=== PATIENT | male | born 1955 | race African-American/Black ===

== ENCOUNTER 2019-03-09 12:30 | Emergency (ER) | payer BC, SELFPAY ==
[2019-03-09 12:32] VITALS: BP 160/114; PULSE 114; RESP 18; TEMP 37.1; O2SAT 100; BMI 26.6
--- NOTE | 2019-03-09 12:54 | ED.VIS.GEN ---
History of Present Illness Chief Complaint: Abd Pain Informant: Patient Onset: Yesterday Context: Gradual Onset Timing: Continuous Quality: pressure, pain, cramps Location: lower abd Current Severity: Moderate Maximum Severity: Moderate Worsened by: nothing Relieved by: nothing Associated Symptoms: cannot urinate or have BM Narrative: Patient has a history of BPH, and was taken off of Flomax which she was on for a long time, about 3 years ago. He has had more difficulty making a good stream of urine than usual lately, followed by the inability to get urine out starting yesterday. He still is unable to urinate and feels like his bladder is full with pressure and severe discomfort in addition to the inability to have a bowel movement. His last bowel movement was not hard or diarrhea, it was normal. He denies any hematuria or bright red blood per rectum. He denies any nausea, vomiting, fevers, discomfort in his back. He sees a urologist in [place] at [facility]. - Past Medical History (1) BPH (benign prostatic hyperplasia) Status: Chronic (2) Hypertension Status: Chronic (3) Hypothyroid Status: Chronic Past Medical History - Allergies and Home Meds Allergies/Adverse Reactions: Allergies No Known Allergies Allergy (Verified 03/09/19 12:32) Primary Care Physician: NOT,DEFINED [NON-STAFF] - Lives: Spouse/ Significant Other Smoking Status: Never smoker Review of Systems General: Denies: Chills, Fever, Sweats Eyes: Denies: Visual changes - bilaterally, Diplopia ENT: Denies: Rhinorrhea, Sore throat Cardiovascular: Denies: Chest pain, Palpitations Respiratory: Denies: Dyspnea, Cough, Dyspnea on exertion Gastrointestinal: Reports: Abdominal pain. Denies: Nausea, Vomiting, Diarrhea, Melena, Hematochezia Genitourinary: Reports: - - Urinary retention. Denies: Dysuria, Hematuria, Frequency Musculoskeletal: Denies: Back pain, Swelling, Extremity Pain Skin: Denies: Rash, Wounds Neurological: Denies: Headache, Weakness, Numbness Physical Exam Vital Signs/Narrative: Vital Signs Temp Pulse Resp BP Pulse Ox 03/09/19 12:32 98.7 F 114 H 18 160/114 H 100 Inital Vital Signs reviewed: Yes General: Well nourished, Well developed, No Acute Distress Head: Normocephalic, Atraumatic Eyes: Perrl, EOMI ENT: Moist mucous membranes, No rhinorrhea Neck: Supple, Nontender Cardiovascular: Regular rate, Regular rhythm, No murmurs Respiratory: No distress, CTA bilaterally, Chest nontender Abdomen: Soft, Normal bowel sounds, Tender - Suprapubic, - - Lower abdominal distention. Negative for: Guarding, Rebound tenderness : - - Hypospadias. No blood at the meatus. Back: Nontender, Normal Inspection. Negative for: CVA tenderness Extremities: Nontender, No edema Skin: Normal color, No rash, No Trauma Neurological: Alert, Oriented x3, Cranial nerves II-XII grossly intact, Normal Strength, Normal Sensation, Normal Gait Psychological: Normal affect, Normal Mood Diagnostic/Tx/Re-eval Laboratory Tests 03/09/19 03/09/19 03/09/19 Range/Units 14:20 14:10 14:10 WBC 4.8 (4.4-11.0) K/mm3 RBC 5.66 (4.6-6.2) M/mm3 Hgb 14.6 (13.0-16.5) g/dl Hct 43.7 (40-54) % MCV 77.2 L (80-94) fL MCH 25.8 L (27.0-32.0) pg MCHC 33.4 (32-36) g/gl RDW 14.1 (11.6-14.6) % RDW Differential 39.3 (35.1-43.9) fl Plt Count 255 (150-450) K/mm3 MPV 9.7 (6.2-12.0) fl Immature Gran % (Auto) 0.000 (0.0-0.9) % Neut % (Auto) 51.7 (47-70) % Lymph % (Auto) 35.2 (19-41) % [place] % (Auto) 11.4 H (0-10) % Eos % (Auto) 1.5 (0-5) % Baso % (Auto) 0.2 (0-1) % Absolute Neuts (auto) 2.5 (2.0-7.7) X10^3/uL Absolute Lymphs (auto) 1.67 (0.83-4.51) X10^3/ul Total Counted Not Reportable Sodium 137 (136-145) mmol/L Potassium 3.3 L (3.5-5.1) mmol/L Chloride 103 (98-107) mmol/L Carbon Dioxide 25.0 (21.0-32.0) mmol/L Anion Gap 9 (5-15) BUN 9 (7-18) mg/dL Creatinine 1.45 H (0.70-1.30) mg/dL Estim Creat Clear Calc 44.18 ml/min Est GFR (MDRD) Af Amer 63 (>60) mL/min Est GFR (MDRD) Non-Af 52 L (>60) mL/min BUN/Creatinine Ratio 6.2 L (10-20) RATIO Glucose 131 H (74-106) mg/dL Calcium 9.8 (8.5-10.1) mg/dL Urine Color Yellow (Yellow) Urine Clarity Sl. Cloudy (Clear) Urine pH 6.5 (5.0 - 8.0) Ur Specific [place] 1.010 (1.002-1.030) Urine Protein 30 H (Negative) mg/dl Urine Glucose (UA) 50 H (Normal) mg/dl Urine Ketones Negative (Negative) mg/dl Urine Occult Blood 250 H (Negative) /ul Urine Nitrite Negative (Negative) Urine Bilirubin Negative (Negative) mg/dL Urine Urobilinogen Normal (Normal) mg/dl Ur Leukocyte Esterase Negative (Negative) /ul Urine RBC > 100 SEEN (0-5) /hpf Urine WBC 0 SEEN (0-5) /hpf Ur Squamous Epith Cells 0 SEEN (0-5) /hpf Urine Bacteria 0 SEEN (None Seen) /hpf Urine Mucus 0 SEEN (<or=2+) /hpf - Medical Decision Making Several nurses attempted [place] and coud? catheter, unable to pass his prostate. Given his urinary retention, discussed with Dr. holbrook urology to evaluate in the emergency department. He had trouble passing a catheter as well and there was hematuria, he needed to use a cystoscope to assist. Eventually catheter was able to be placed patient was decompressed and feels better. Labs show mild renal insufficiency, if it is not chronic it should now return to normal with time. Dr. holbrook advises placing him on Flomax and prophylactic antibiotics the next 5 days, follow-up with either him or his own urologist in 1 week for reevaluation. ED Disposition - Plan for ED Patient: Disposition: Home or Assisted Living Diagnosis: Acute urinary retention, BPH (benign prostatic hyperplasia) Instructions: ED Retention Urinary Male Prescriptions: Tamsulosin HCl [Flomax] 0.4 mg PO DAILY #30 capsule Cephalexin [Keflex] 500 mg PO TID #15 capsule Referrals: Baljinder Holbrook MD [STAFF PHYSICIAN] - 1 Week (or your own urologist)
[2019-03-09] MEDS: Lidocaine Jelly 2% 20 ML Syringe (URO-JET) 20 APPLIC TOPICAL (13:23)
--- NOTE | 2019-03-09 13:31 | ED.RN ---
Unable to pass 16fr iraheta; Sharlene Morejon RN attempted to pass coude cath without success. MD Jimenez notified.
[2019-03-09 14:20] LABS: Absolute Lymphocyte Count 1.67 X10^3/ul (0.83-4.51); Absolute Neutrophil Count 2.5 X10^3/uL (2.0-7.7); Basophil# 0.01 X10^3/uL; Basophil% 0.2 % (0-1); Eosinophil# 0.07 X10^3/uL; Eosinophils% 1.5 % (0-5); Hematocrit 43.7 % (40-54); Hemoglobin 14.6 g/dl (13.0-16.5); Lymphocyte # 1.67 X10^3/ul (4.0); Lymphocyte % 35.2 % (19-41); Mean Corp Hgb Conc 33.4 g/gl (32-36); Mean Corpuscular Hgb 25.8 pg (27.0-32.0); Mean Corpuscular Volume 77.2 fL (80-94); Mean Platelet Vol. 9.7 fl (6.2-12.0); Monocyte# 0.54 X10^3/uL; Monocyte% 11.4 % (0-10); Neutrophil # 2.46 X10^3/uL (2.7-7.7); Platelet Count 255 K/mm3 (150-450); RBC Distribution Width CV 14.1 % (11.6-14.6); RBC Distribution Width SD 39.3 fl (35.1-43.9); Red Blood Count 5.66 M/mm3 (4.6-6.2); White Blood Count 4.8 K/mm3 (4.4-11.0)
[2019-03-09 14:21] LABS: Neutrophil % 51.7 % (47-70); POSITIVE COUNT NO; POSITIVE DIFFERENTIAL NO; POSITIVE MORPHOLOGY NO
--- NOTE | 2019-03-09 14:25 | PCM.CONS.U ---
Problem List (1) BPH (benign prostatic hyperplasia) Status: Chronic Qualifiers: Lower urinary tract symptom detail: urinary retention Reason for Consult Date of Consultation: 03/09/19 Reason for Consultation: Urinary retention and BPH with obstruction History of Present Illness: The patient is a 63 year old male who presented to the emergency room and acute urinary retention he is not been able to void since last night in the past he saw a urologist up in [facility] who had him on Flomax he been doing well so he stopped his Flomax. Also a history of elevated PSA said he had a prostate MRI and also prostate biopsies all were negative for cancer. He is been off his Flomax and suddenly developed retention of urine presented to the emergency room the ER staff gently try to put a catheter in but met resistance and could not went in the try to coud? met resistance and and then put the pull the catheter out and called for assistance. Past Medical History Past Medical History (Chronic Problems): Chronic Problems BPH (benign prostatic hyperplasia) (Chronic) Hypertension (Chronic) Hypothyroid (Chronic) Allergies No Known Allergies Allergy (Verified 03/09/19 12:32) Home Medications: Ambulatory Orders Medication Instructions Recorded Amlodipine Besylate/Benazepril 1 each PO DAILY 03/09/19 [Amlodipine-Benazepril 10-20 mg] Levothyroxine [Synthroid] mcg PO DAILY 03/09/19 Surgical History: no surgical history Psychiatric History: No pertinent psych hx Lives: Spouse/ Significant Other Smoking Status: Never smoker Tobacco Use: Non-smoker Alcohol: None Drugs: None Review of Systems Constitutional: Denies: Chills, Fever, Weight Change HEENT: Denies: Head Aches, Sinus Congestion, Sinus Drainage Cardiovascular: Denies: Chest Pain, Palpitations Respiratory: Denies: Cough, Shortness of breath at rest, Sputum production Gastrointestinal: Reports: Abdominal Pain. Denies: Nausea, Vomiting Genitourinary: Reports: Retention. Denies: Dysuria Musculoskeletal: Denies: Joint Pain, Joint Tenderness Skin: Denies: Rash, Wounds Neurological: Denies: Numbness, Tingling, Focal weakness Psychiatric: Denies: Anxiety, Depression, Homicidal Ideations, Suicidal Ideations Hematologic/ Lymphatic: Denies: Easy Bruising, Easy Bleeding Physical Exam - Physical Exam Vital Signs Temp 98.7 F 03/09/19 12:32 Pulse 114 H 03/09/19 12:32 Resp 18 03/09/19 12:32 BP 160/114 H 03/09/19 12:32 Pulse Ox 100 03/09/19 12:32 Intake & Output 03/07/19 03/08/19 03/09/19 23:59 23:59 23:59 Weight: 72.575 kg General: Alert, Oriented x3 HEENT: Atraumatic Oral: Moist Mucosa Neck: Supple Lungs: Normal air movement Cardiovascular: Regular rate Abdomen: Soft - On exam he has a hypospadias normal male phallus testicles are normal IVANA deferred for now. Laboratory Tests Past 24 Hrs 03/09/19 03/09/19 14:10 14:10 WBC 4.8 RBC 5.66 Hgb 14.6 Hct 43.7 MCV 77.2 L MCH 25.8 L MCHC 33.4 RDW 14.1 RDW Differential 39.3 Plt Count 255 MPV 9.7 Immature Gran % (Auto) 0.000 Neut % (Auto) 51.7 Lymph % (Auto) 35.2 [place] % (Auto) 11.4 H Eos % (Auto) 1.5 Baso % (Auto) 0.2 Absolute Neuts (auto) 2.5 Absolute Lymphs (auto) 1.67 Total Counted Not Reportable Sodium Pending Potassium Pending Chloride Pending Carbon Dioxide Pending Anion Gap Pending BUN Pending Creatinine Pending Est GFR (MDRD) Af Amer Pending Est GFR (MDRD) Non-Af Pending BUN/Creatinine Ratio Pending Glucose Pending Calcium Pending Assessment/Plan All Active Problems Acute urinary retention (Acute) 63-year-old male presented with urinary urinary retention at the bedside I first used a Glidewire to try to advance it through the prostate area but was running into some resistance I did not do any dilation tried a second Glidewire and again ran into some resistance I did not do any dilation, I then went in with a flexible cystoscope to see exactly what was the cause of the obstruction was able to get down into the membranous urethra and bulbar urethra all that was wide open I saw the sphincter was intact went past the sphincter that was all bloody really could not see anything is just all bloody I then uses flexible scope I flexed up and then gently went through the area that was quite bloody and then entered the bladder really could not see what was going on the prostate was all bloody but I was in the bladder so at this point then I put a wire through the flexible scope and then after the wire was placed and I backed out the ureteroscope of the wire in place and on the wire advanced a 16 [place] nav[place] tip catheter and immediately got a return of a lot of urine placed 10 cc in the balloon. Patient will go home with a catheter to allow the bladder to heal the drain is prostate prostate and bladder. Will restart his Flomax per him on antibiotics I will see him in a week for checkup at that point we will take out the catheter for another voiding trial.
[2019-03-09] MEDS: Morphine 4 MG/ML Syringe IV (14:26)
[2019-03-09 14:33] LABS: Anion Gap 9 (5-15); BUN 9 mg/dL (7-18); BUN/Creat Ratio 6.2 RATIO (10-20); Calcium,Total 9.8 mg/dL (8.5-10.1); Chloride 103 mmol/L (98-107); Creatinine, Serum 1.45 mg/dL (0.70-1.30); EST Glomerular Filtration Rate 52 mL/min (>60); Est Glom Filt Rate - Afr Amer 63 mL/min (>60); Estimated Creatinine Clearance 44.18 ml/min; Glucose 131 mg/dL (74-106); Potassium 3.3 mmol/L (3.5-5.1); Sodium Level 137 mmol/L (136-145)
[2019-03-09 14:38] LABS: Bacteria 0 SEEN /hpf (None Seen); Mucous, Urine 0 SEEN /hpf (<or=2+); Squamous Epithelial Cells - UA 0 SEEN /hpf (0-5); White Blood Cells 0 SEEN /hpf (0-5)
[2019-03-09 14:43] LABS: Color, Urine Yellow (Yellow); Glucose, Dipstick 50 mg/dl (Normal); Ketone-Dipstick Negative (Negative); Leukocyte Esterase-Dipstick Negative /ul (Negative); Nitrite-Dipstick Negative (Negative); Occult Blood-Urine 250 /ul (Negative); Protein-Dipstick 30 mg/dl (Negative); Urine Bilirubin Dipstick Negative (Negative); Urine Clarity Sl. Cloudy (Clear); Urine Urobilinogen Normal (Normal); Urine pH 6.5 (5.0 - 8.0)
[2019-03-09 14:53] LABS: Red Blood Cells-Urine > 100 SEEN /hpf (0-5)
[2019-03-09 15:23] VITALS: BP 148/100; PULSE 75; RESP 16
== END 2019-03-09 15:24 | disposition home or self-care (01) ==
PROVIDERS: Emergency Provider Emergency Medicine; Family Provider Internal Medicine; PCP Internal Medicine
DX: N40.1 Benign prostatic hyperplasia with lower urinary tract symptoms (principal); R33.8 Other retention of urine; N28.9 Disorder of kidney and ureter, unspecified; I10 Essential (primary) hypertension; E03.9 Hypothyroidism, unspecified; Z79.899 Other long term (current) drug therapy
CPT/HCPCS: 80048; 81001; 85025; 96374; 99283; A4216

== ENCOUNTER 2019-03-28 12:49 | Day surgery (SDC) | payer BC, SELFPAY ==
[2019-03-28] VITALS (11 sets, daily range): BP systolic 113–146; BP diastolic 69–104; PULSE 76–103; RESP 14–18; TEMP 36.4–37.2; O2SAT 93–98; BMI 26.2
--- NOTE | 2019-03-28 | PROS_PTH ---
PATIENT: ARY MCALLISTER LOC: [facility] [place] U#:[id number] AGE/SX: 63/M ROOM: RE03/28/[address]: Dr. Baljinder Holbrook MD : 1955 BED: DIS: 03/29/2019 SPEC #: [id number] RECD: 03/28/19 16:51 STATUS: LAKSHMI BORIS #: [id number] GWEN: 03/28/19 00:[address]: Baljinder Holbrook DEPT: SURGICAL PATHOLOGY RECD BY: Pedro Reilly ENTERED: 03/31/19 10:12 SP TYPE: TURP OTHR DR: Dr. Jaja Clayton MD Tissues: Prostate, NOS Procedures: Surgery Specimen Level IV HEADER OPERATION: Cystoscopy, TUR of prostate PRE-OP DIAGNOSIS: Urinary retention, benign prostatic hyperplasia TISSUE SUBMITTED: Prostate tissue MICROSCOPIC DIAGNOSIS Prostate tissue, TUR: Prostatic adenocarcinoma. See cancer summary below. SJ:roberta 04/01/19 PROSTATE CANCER (TUR) SUMMARY: Procedure - transurethral prostatic resection Specimen weight - 38.9 gm Histologic type - adenocarcinoma (acinar, not otherwise specified) Histologic grade (Robi Pattern): Primary (predominant) pattern - 3 Secondary (worst remaining) pattern - 3 Total Dierks score - 6 Tumor Quantitation (TUR specimens): Proportion (%) of prostatic tissue involved by tumor - <1% Tumor incidental histologic findings in no more than 5% of tissue resected with Dierks score 2 to 6 (cT1a). Number of positive chips - 6 Total number of chips examined - 120 Periprostatic fat invasion - not applicable Seminal vesicle invasion - not applicable Lymph-Vascular invasion - not identified Perineural invasion - not identified Additional pathologic findings - benign prostatic hyperplasia, glandular and stromal type. - Chronic inflammation. The above summary is in compliance with [employer] of [place] [employer] (CAP) Cancer Protocols Checklist and [place] Joint Committee on Cancer (AJCC), Staging Manual, 8th Ed. COMMENT Immunohistochemistry ([id number]) supports the above diagnosis. Case has been reviewed in consultation with Dr. Vance who concurs with the above diagnosis. IDC:AM MICROSCOPIC DESCRIPTION Slides are reviewed. GROSS DESCRIPTION Received is one container labeled with the patient's name and designated prostate tissue. The specimen consists of multiple irregular fragments of pink-rodriguez, rubbery, soft tissue that in aggregate weigh 38.9 gm and measure in aggregate 6 x 6 x 1.5 cm. Textile Science Technician portions are submitted in 12 cassettes. / AM:roberta 03/31/19 TC:0 CPT: 60756
--- NOTE | 2019-03-28 | IMM_PTH ---
PATIENT: ARY MCALLISTER LOC: [facility] [place] U#:[id number] AGE/SX: 63/M ROOM: RE03/28/[address]: Dr. Baljinder Holbrook MD : 1955 BED: DIS: 03/29/2019 SPEC #: [id number] RECD: 04/01/19 12:49 STATUS: LAKSHMI REQ #: [id number] GWEN: 03/28/19 00:[address]: Baljinder Holbrook DEPT: IMMUNOHISTOCHEMISTRY RECD BY: Fiona Cope ENTERED: 04/01/19 12:50 SP TYPE: IMMUNO OTHR DR: Dr. Jaja Clayton MD Tissues: Prostate, NOS Procedures: P40 (add) 34BE12 (initial) PHYSICIAN & INSTITUTION [place] [id number] SPECIMEN INFORMATION: Tissue Source: Prostate tissue Clinical Info: Urinary retention, BPH Specimen Number: [id number] #10 CPT code: 61117, 18905 METHODOLOGY: Deparaffinized sections of prefer/formalin-fixed tissue or PAP/DQ stained slides are incubated with monoclonal/polyclonal antibodies/oligonucleotide probes. Localization is made via biotin free immunoperoxidase method. Appropriate controls are performed and reacted as expected. Results on target cell population are indicated in the following table: RESULTS: ANTIBODY / CLONE RESULT Block 10 P40 (BC28) negative 34BE12 (34BE12) negative These tests were developed and their performance characteristics determined by [facility]. They may not have been cleared or approved by the U.S. Food and Drug Administration. The FDA has determined that such clearance or approval is not necessary. INTERPRETATION: Prostate, TUR: Adenocarcinoma. BRITTANY:roberta 04/01/19
--- NOTE | 2019-03-28 12:59 | EKG12_ITS ---
Test Reason : PREOP Blood Pressure : / mmHG Vent. Rate : 078 BPM Atrial Rate : 078 BPM P-R Int : 214 ms QRS Dur : 084 ms QT Int : 380 ms P-R-T Axes : 077 038 050 degrees QTc Int : 433 ms Sinus rhythm with 1st degree A-V block Otherwise normal ECG Confirmed by EVAN NAVARRO, ASHWIN ([id number]), news editor PANDA YANES ([id number]) on 04/02/2019 12:53:26 PM Referred By: Baljinder Holbrook Confirmed By:ASHWIN GORDON MD
[2019-03-28] MEDS: Cefazolin 2 GM in 0.9% Normal Saline 100 ML IV (14:27)
[2019-03-28 14:28] LABS: Thyroid Stim Hormone (TSH) 2.59 uIU/mL (0.358-3.74)
--- NOTE | 2019-03-28 16:29 | DCINST_ITS ---
Discharge Diet: Light diet - advance as tolerated Discharge Activity: Return to Normal Activity Suture Line Care: Avoid Pulling/Pushing, Avoid Pinching/Bending Instructions: Transurethral Resection of the Prostate (TURP): Home Recovery Allergies/Adverse Reactions: Allergies No Known Allergies Allergy (Verified 03/28/19 13:02) Medications to take at Discharge Amlodipine Besylate/Benazepril [Amlodipine-Benazepril 10-20 mg] 1 each PO DAILY 03/09/19 Levothyroxine [Synthroid] 125 mcg PO DAILY 03/09/19 Tamsulosin HCl [Flomax] 0.4 mg PO DAILY #30 cap 03/09/19 Ciprofloxacin [Cipro] 500 mg PO BID 03/27/19 Acetaminophen [Tylenol Extra Strength] 500 mg PO Q4H PRN PRN #20 tab 03/28/19 Ciprofloxacin [Cipro] 500 mg PO BID #10 tab 03/28/19 Ibuprofen 600 mg PO Q6H PRN PRN #20 tab 03/28/19 The following prescriptions were given: Acetaminophen [Tylenol Extra Strength] 500 mg PO Q4H PRN PRN #20 tab PRN Reason: Pain Ibuprofen 600 mg PO Q6H PRN PRN #20 tab PRN Reason: Pain Ciprofloxacin [Cipro] 500 mg PO BID #10 tab Primary Care Physician: Jaja Clayton MD [Primary Care Provider] - Test Results: Test results from this visit will be discussed in further detail at your follow- up appointment, if applicable. Please Follow Up With: Baljinder Holbrook MD When: in 2 weeks, please call to make an appointment.
--- NOTE | 2019-03-28 16:32 | OP.PCM_ITS ---
Report of Operation Date of Procedure: 03/28/19 Pre-Operative Diagnosis: BPH with obstruction very large prostate Post-Operative Diagnosis: Same Surgery/Procedure Performed:: Transurethral resection of a large prostate Description of Surgical Findings:: 63-year-old male with a fairly large prostate presents to the office with retention of urine he is failed voiding trials he is on medical therapy recommended we proceed with a transurethral resection of the prostate and understands the rare risk of bleeding infection anesthesia complications and rare risk of incontinence. We discussed retrograde ejaculation as well as the side effects. 63-year-old male taken back to the operating room after smooth induction of anesthesia he was placed in dorsolithotomy position the penis and testicles are prepped and draped in usual sterile fashion, went into the bladder with a 26 [place] continuous flow resectoscope on inspection he had very large significant hypertrophy of bilateral obstruction high riding bladder neck with BPH tissue identified the right and left ureteral orifice he had a very large distended bladder I then started a resection resected on the floor all the way to have back to the room was resected the right lobe of the prostate and resect the left lobe of the prostate then sutured with the button and vaporized the resection smoothly and then after an hour to have a resection I resected enough that I think that he would restore voiding certainly did not do a complete resection of the prostate such a large prostate and possible this point do a complete resection but I think enough that he should be able to urinate and to restore more normal voiding at the end with a flow test had a nice flow urine was fairly bloody with constant irrigation and the patient anesthetic was reversed he was taken back to PACU in good condition after resection of very large prostate. Type of Anesthesia:: General Drains: 22fr 3 way iraheta - Admit VTE Documentation VTE Present on Admission: No VTE Mechan Device Prophylaxis: SCD's
[2019-03-28] MEDS: 0.9% Normal Saline 1,000 ML 75 ML IV (18:24)
[2019-03-28] MEDS: Ciprofloxacin 400 MG/200 ML BAG 200 MG IV (22:26)
[2019-03-28] MEDS: Docusate Sodium 100 MG Capsule PO (22:31)
[2019-03-28] MEDS: Ibuprofen 600 MG Tablet PO (22:34)
[2019-03-29 04:00] VITALS: BP 100/62; PULSE 72; RESP 18; TEMP 36.4; O2SAT 98
[2019-03-29 06:20] LABS: Hematocrit 33.1 % (40-54); Hemoglobin 10.8 g/dl (13.0-16.5); Mean Corp Hgb Conc 32.6 g/gl (32-36); Mean Corpuscular Hgb 25.9 pg (27.0-32.0); Mean Corpuscular Volume 79.4 fL (80-94); Mean Platelet Vol. 9.6 fl (6.2-12.0); Platelet Count 286 K/mm3 (150-450); RBC Distribution Width CV 13.2 % (11.6-14.6); RBC Distribution Width SD 37.8 fl (35.1-43.9); Red Blood Count 4.17 M/mm3 (4.6-6.2)
[2019-03-29 06:27] LABS: Scan Indicated on CBC? Y/N NO
[2019-03-29 06:32] LABS: Anion Gap 9 (5-15); BUN 12 mg/dL (7-18); BUN/Creat Ratio 8.6 RATIO (10-20); Calcium,Total 8.2 mg/dL (8.5-10.1); Chloride 106 mmol/L (98-107); EST Glomerular Filtration Rate 54 mL/min (>60); Est Glom Filt Rate - Afr Amer 65 mL/min (>60); Estimated Creatinine Clearance 45.76 ml/min; Glucose 118 mg/dL (74-106); Potassium 3.7 mmol/L (3.5-5.1); Sodium Level 141 mmol/L (136-145)
[2019-03-29] MEDS: Levothyroxine 125 MCG Tablet PO (06:41)
[2019-03-29] MEDS: Ciprofloxacin 400 MG/200 ML BAG 200 MG IV (09:22)
[2019-03-29] MEDS: Tamsulosin HCl 0.4 MG Capsule PO (09:24)
[2019-03-29] MEDS: Docusate Sodium 100 MG Capsule PO (09:24)
[2019-03-29] MEDS: Pantoprazole Sodium 40 MG Tablet PO (09:24)
[2019-03-29] MEDS: amLODIPine 10 MG Tablet PO (09:25)
[2019-03-29] MEDS: Lisinopril 20 MG Tablet PO (09:25)
[2019-03-29 10:00] VITALS: BP 101/66; PULSE 70; RESP 18; TEMP 36.8; O2SAT 98
[2019-03-29] MEDS: Ibuprofen 600 MG Tablet PO (11:32)
[2019-03-29 11:56] VITALS: BP 112/68; PULSE 70; RESP 18; TEMP 36.7; O2SAT 98
== END 2019-03-29 12:00 | disposition home or self-care (01) ==
LOC: SDC 12:50 → AC 12:51 → MS3 12:53
PROVIDERS: Anesthesiology; Family Provider Internal Medicine; PCP Internal Medicine; Referring Provider Urology; Visit Provider Urology
PROC: (CPT 52601; principal; 2019-03-28 14:20)
DX: N40.1 Benign prostatic hyperplasia with lower urinary tract symptoms (principal); N13.8 Other obstructive and reflux uropathy; R33.9 Retention of urine, unspecified; E78.00 Pure hypercholesterolemia, unspecified; Z79.899 Other long term (current) drug therapy; I44.0 Atrioventricular block, first degree; I10 Essential (primary) hypertension; E03.9 Hypothyroidism, unspecified
CPT/HCPCS: 52601; 36415; 80048; 84443; 85027; 88305; 88341; 88342; 93005; J7030; J7120; J0744; J2405

== ENCOUNTER → 2019-07-24 15:48 | Outpatient (CLI) | payer BC, SELFPAY ==
[2019-03-28 18:20] VITALS: BMI 26.2
== END ==
PROVIDERS: Family Provider Internal Medicine; PCP Internal Medicine; Referring Provider Urology; Visit Provider Urology
DX: N40.0 Benign prostatic hyperplasia without lower urinary tract symptoms (principal)
CPT/HCPCS: 36415; 84153

== ENCOUNTER → 2019-09-10 14:05 | Outpatient (CLI) | payer BC, SELFPAY ==
[2019-03-28 18:20] VITALS: BMI 26.2
[2019-09-13 13:20] LABS: PSA, Free 1.33 ng/mL; PSA, Total Ultrasensitive 11.1 ng/mL (0.0-4.0)
== END ==
PROVIDERS: Family Provider Internal Medicine; PCP Internal Medicine; Referring Provider Urology; Visit Provider Urology
DX: C61 Malignant neoplasm of prostate (principal); R97.20 Elevated prostate specific antigen [PSA]
CPT/HCPCS: 36415; 84153; 84154

== ENCOUNTER → 2023-08-13 | Outpatient (CLI) | payer BC, SELFPAY ==
--- NOTE | 2023-08-13 07:10 | ECHOD_ITS ---
Reason For Study: HTN Procedure This was a 2D Doppler, Color Flow transthoracic echocardiogram. Exam performed in department. Left Ventricle Normal LV size. Left ventricular systolic function is normal. The estimated ejection fraction is 64 %. Stage 1 diastolic dysfunction. No regional wall motion abnormalities noted. Right Ventricle Normal RV size. Normal systolic function. Atria Normal left atrium. Normal right atrium. Mitral Valve Normal mitral valve. Tricuspid Valve Normal tricuspid valve. Mild tricuspid valve insufficiency. Pulmonary artery systolic pressure is 30 mmHg. Aortic Valve Normal aortic valve. Pulmonic Valve Normal pulmonic valve. Great Vessels Normal aortic root. The pulmonary artery is normal size. Normal inferior vena cava. Pericardium/Pleural No pericardial effusion. MMode/2D Measurements & Calculations LVIDd: 4.0 cm IVSd: 1.1 cm LAV(MOD-bp): 26.1 ml LVIDs: 2.9 cm LVPWd: 1.1 cm LAV(MOD-bp) Indexed: 14.3 ml/m2 FS: 25.9 % LAV(MOD-sp2): 22.7 ml LAV(MOD-sp4): 30.1 ml SV(MOD-sp4): 31.6 ml SV(sp4-el): 33.1 ml LVAd ap4: 21.1 cm2 LVLd ap4: 7.2 cm EDV(MOD-sp4): 51.0 ml EDV(sp4-el): 52.1 ml LVAs ap4: 11.8 cm2 LVLs ap4: 6.2 cm ESV(MOD-sp4): 19.4 ml ESV(sp4-el): 19.0 ml EF(MOD-sp4): 61.9 % EF(sp4-el): 63.6 % LA A4 area: 12.4 cm2 LA dimension(2D): 3.0 cm RA A4 area: 12.1 cm2 TAPSE: 2.4 cm Time Measurements MV dec time: 0.12 sec Doppler Measurements & Calculations MV E max marshall: 67.4 cm/sec Lat Peak E' Marshall: 6.6 cm/sec Med Peak E' Marshall: 5.0 cm/sec MV A max marshall: 106.6 cm/sec E/E' lat: 10.3 E/E' med: 13.6 MV E/A: 0.63 MV V2 max: 106.3 cm/sec Ao V2 max: 107.4 cm/sec MV max P.5 mmHg MV dec slope: 566.9 cm/sec2 Ao max P.6 mmHg MV V2 mean: 65.1 cm/sec Ao V2 mean: 73.7 cm/sec MV mean P.9 mmHg Ao mean P.5 mmHg MV V2 VTI: 30.5 cm Ao V2 VTI: 24.2 cm AV (velocity ratio): 0.51 LV V1 max: 91.3 cm/sec TR max marshall: 251.2 cm/sec LV V1 max P.3 mmHg TR max P.2 mmHg LV V1 mean P.5 mmHg LV V1 mean: 56.1 cm/sec LV V1 VTI: 12.4 cm ECHO/Echo Complete Interpretation Summary Normal LV size. Left ventricular systolic function is normal. The estimated ejection fraction is 64 %. Stage 1 diastolic dysfunction. Mild tricuspid valve insufficiency. Ordering Physician: Justin Tang Referring Physician: Justin Tang Performed By: Lilia Quevedo RCS
--- NOTE | 2023-08-13 13:57 | STRESSREP ---
Stress Test Report Exercise myocardial perfusion stress test. 67-year-old man with a history of chest pain Stress protocol: Resting EKG demonstrates normal sinus rhythm with a rate of 63 bpm resting blood pressure is 148/82 mmHg. The patient exercised according to the regular Antonio protocol for a total duration of 7 minutes attaining a maximum heart rate of 153 bpm which was 101% of maximum predicted heart rate; the maximum workload was 10.1 metabolic equivalents. At rest there were no ST or T wave changes noted to suggest ischemia and at peak exercise upsloping ST changes only were noted which did not meet the criteria for ischemia. No clinical angina was noted the test was terminated due to the target heart rate being achieved/fatigue. The peak blood pressure was 158/88 mmHg. Rate-pressure product was 22,400. Myocardial perfusion protocol. 10.0 mCi of technetium 99m sestamibi was injected at rest. The patient exercised according to regular Antonio protocol for total duration of 7 minutes and at peak exercise 35 mCi of technetium 99m sestamibi was injected stress images were obtained stress and rest images were reconstructed in comparing the short axis vertical long and horizontal long axis. Gated images were also obtained. Perfusion SPECT analysis: Review of the stress images demonstrate normal uptake of tracer noted in all areas of the myocardium. The resting images similarly demonstrate normal uptake of tracer noted in all areas of the myocardium. No areas of reversibility are noted to suggest ischemia no previous infarct was noted. Gated SPECT analysis: The gated ejection fraction is 67%. Conclusion: Normal exercise myocardial perfusion stress test at a high workload Preserved ejection fraction.
== END | disposition home or self-care (01) ==
PROVIDERS: PCP Internal Medicine; Referring Provider Internal Medicine Cardiovascular Disease; Visit Provider Internal Medicine Cardiovascular Disease
DX: I10 Essential (primary) hypertension (principal); I07.1 Rheumatic tricuspid insufficiency
CPT/HCPCS: 78452; 93017; 93306; A9500; A4216

== ENCOUNTER → 2023-08-15 | Outpatient (CLI) | payer BC, SELFPAY ==
--- NOTE | 2023-08-15 08:06 | CT_ITS ---
STUDY: CT CHEST WITHOUT CONTRAST REASON FOR EXAM: Male, 67 years old. htn hyperlipemia. Cardiac over read examination. RADIATION DOSAGE (If Supplied By Facility): CTDIvol = ( 12.19 ) mGy, DLP = ( 219.12 ) mGycm TECHNIQUE: Transaxial imaging was performed without the administration of intravenous contrast material. Individualized dose optimization techniques were used for this CT. COMPARISON: No relevant priors. FINDINGS: CHEST The lungs are normal. There is no demonstrated pleural abnormality. There are mild calcifications of the coronary arteries. Normal mediastinum. Normal hilar regions. Normal unenhanced pulmonary arteries. Normal aorta arch and descending thoracic aorta. Normal osseous structures. Small hepatic cysts. CT/Limited Chest CT Cardiac Only IMPRESSION: Mild degree of coronary artery calcification. Hepatic cysts. Electronically Signed: Abdulaziz Lyons MD at 9:56 EDT ,
--- NOTE | 2023-08-15 11:03 | CA.SCORE ---
Calcium Scoring Date of Study:: 08/15/23 Indications Indications: Hypertension Coronary Calcium Scoring: High-resolution Computed Tomographic imaging of the chest was performed on [08/15/23 ], with particular attention paid to the coronary arteries. Images from the examination were analyzed for the presence and extent of coronary artery calcification , using coronary calcium quantification software. The patient tolerated the procedure well and there were no complications. The results of the coronary calcification analysis are provided below. Findings Coronary Artery Left Main (LM): 0 Left Anterior Descending (LAD): 10 Left Circumflex (LCX): 10 Right Coronary Artery (RCA): 0 Total Agatston Score: 20 Percentile Ranking: Less than 10 Calcium Scoring Interpretation: Different methods to categorize the overall amount of coronary plaque. Overall amount CAC SIS Visual of coronary plaque P1 Mild -100 <2 1-2 vessels with mild amount of plaque P2 Moderate 101-300 3-4 1-2 vessels with moderate amount, 3 vessels with mild amount of plaque P3 Severe 301-999 5-7 3 vessels with moderate amount, 1 vessel with severe amount of plaque P4 Extensive >1000 >8 2-3 vessels with severe amount of plaque Conclusion: Minimal atherosclerotic plaquing noted.
== END | disposition home or self-care (01) ==
PROVIDERS: PCP Internal Medicine; Referring Provider Internal Medicine Cardiovascular Disease; Visit Provider Internal Medicine Cardiovascular Disease
DX: I10 Essential (primary) hypertension (principal); E78.5 Hyperlipidemia, unspecified; I25.10 Atherosclerotic heart disease of native coronary artery without angina pectoris; K76.89 Other specified diseases of liver
CPT/HCPCS: 75571; 76380